=== PATIENT | female | born 1950 | race Caucasian/White ===

== ENCOUNTER 2017-03-17 23:47 | Observation (INO) | payer OTHER ==
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
[2017-03-18] MEDS ORDERED: HYDROmorphONE/DILAUDID 1 MG/ML SYR IVP ONE ×2 (00:13→01:53)
[2017-03-18] MEDS ORDERED: ONDANSETRON 4 MG/2 ML VIAL IVP ONE (00:13)
[2017-03-18] MEDS ORDERED: NS 1,000 ML IV ONE ×2 (00:13→01:53)
[2017-03-18 00:19] LABS: % IMMATURE GRANULYOCYTES 0.1 % (0.0-1.1); ABSOLUTE IMMATURE GRANULOCYTES 0.01 10^3/uL (0.00-0.10); ADD DIFF? NO; ADD MORPH? NO; ADD SCAN? NO; ATYPICAL LYMPHOCYTE FLAG 0 (0-99); FRAGMENT RBC FLAG 0 (0-99); HEMATOCRIT 43.1 % (38.0-47.0); HEMOGLOBIN 14.6 g/dL (12.6-16.3); LEFT SHIFT FLG 0 (0-99); LIPEMIA HEMOLYSIS FLAG 90 (0-99); MEAN CELL HEMOGLOBIN 30.5 pg (27.9-34.1); MEAN CELL HEMOGLOBIN CONCENTR. 33.9 g/dL (32.4-36.7); MEAN PLATELET VOLUME 10.7 fL (8.7-11.7); PLATELET CLUMPS FLAG 20 (0-99); PLATELET COUNT 207 10^3/uL (150-400); RED BLOOD CELL COUNT 4.79 10^6/uL (4.18-5.33); RED CELL DISTRIBUTION WIDTH 14.1 % (11.5-15.2)
[2017-03-18 00:29] LABS: ALANINE AMINOTRANSFERASE 56 IU/L (9-52); ALBUMIN 4.3 g/dL (3.5-5.0); ALKALINE PHOSPHATASE 94 IU/L (38-126); ANION GAP 10 mEq/L (8-16); ASPARTATE AMINOTRANSFERASE 33 IU/L (14-46); BILIRUBIN,TOTAL 0.5 mg/dL (0.1-1.4); BILIRUBIN-CONJUGATED 0.5 mg/dL (0.0-0.5); CALCIUM 9.4 mg/dL (8.5-10.4); CARBON DIOXIDE 21 mEq/l (22-31); CHLORIDE 109 mEq/L (97-110); CREATININE 1.1 mg/dL (0.6-1.0); GLOMERULAR FILTRATION RATE 50; GLUCOSE 102 mg/dL (70-100); POTASSIUM 4.2 mEq/L (3.5-5.2); SODIUM 140 mEq/L (134-144); TOTAL PROTEIN 7.5 g/dL (6.3-8.2)
[2017-03-18] MEDS ORDERED: HYDROmorphONE/DILAUDID 1 MG/ML SYR ONE (01:49)
[2017-03-18] MEDS ORDERED: KETOROLAC 30 MG/1 ML SDV IVP ONE (01:56)
[2017-03-18] MEDS ORDERED: HYDROmorphONE/DILAUDID 1 MG/ML SYR IVP PRN (02:48)
[2017-03-18] MEDS ORDERED: ONDANSETRON 4 MG/2 ML VIAL IVP PRN (02:48)
[2017-03-18] MEDS ORDERED: ACETAMINOPHEN 325 MG TAB PO PRN (02:48)
[2017-03-18] MEDS ORDERED: ONDANSETRON DISINTEGRATING 4 MG TAB PO PRN (02:48)
[2017-03-18] MEDS ORDERED: KETOROLAC 30 MG/1 ML SDV IVP PRN (02:51)
--- NOTE | 2017-03-18 02:53 | PDGENHP ---
History and Physical - Chief Complaint L flank pain - History of Present Illness Patient is a 66 year old female with history of migraines and recurrent nephrolithiasis who presents to the ED with complaint of L flank pain. Patient states she has had recurrent L renal stones for about 1 year, more frequently since 11/2016 when she was diagnosed with a 5mm stone. She states her stones have all mostly passed without intervention and have never been complicated by infection. She states this evening she had sudden onset of a dull, achy L flank pain that started in her back and radiated into her L flank. She felt the quality of her pain was consistent with her previous renal stones, however, the intensity was significantly worse than it's ever been previously. Over the course of the following hours, the pain continued to intensify, so she came to the ED for further management. She reports some mild nausea, but denies any associated fever, chills, dysuria or obvious hematuria. On arrival to the ED, patient was afebrile and hemodynamically stable. Labs showed normal cbc, bmp. CT abd/pelvis revealed a 6.5 mm proximal L ureter stone with mild hydronephrosis. Her symptoms were not able to be adequately controlled in the ED, so she was admitted to the hospitalist service for further management. History Information - Allergies/Home Medication List Allergies/Adverse Reactions: hydrocodone bitartrate [From Vicodin] Allergy (Verified 03/17/17 23:53) Home Medications: Calcium Carbonate/Vitamin D3 [Calcium 600 + Vit D 400 Softgl] 2 each PO DAILY@ 1200 12/27/15 [Last Taken 12/26/15 12:00] Estradiol [Vivelle-Dot 0.05MG (*)] 0.05 mg TD SuWe@0800 12/27/15 [Last Taken ] Herbals/Supplements -Info Only 1 ea PO DAILY 12/27/15 [Last Taken 12/26/15] Levothyroxine [Synthroid 125 mcg (*)] 125 mcg PO DAILY06 12/27/15 [Last Taken 05:00] Progesterone, Micronized [Progesterone] 100 mg PO HS 12/27/15 [Last Taken 22:00] Propranolol HCl [Inderal LA] 160 mg PO DAILY 12/27/15 [Last Taken 12/26/15 09:00 ] Topiramate [Topamax 25MG (*)] 25 mg PO HS 12/27/15 [Last Taken 12/26/15 22:00] Topiramate [Topamax 25MG (*)] 50 mg PO DAILY 12/27/15 [Last Taken 12/26/15 09:00 ] I have personally reviewed and updated: family history, medical history, social history, surgical history - Past Medical History Additional medical history: Migraine headache. recurrentn nephrolithiasis - Surgical History Additional surgical history: appendectomy. 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 Review of Systems ROS: 10pt was reviewed & negative except for what was stated in HPI & below Physical Exam Temp Pulse Resp BP Pulse Ox 36.7 C 57 L 16 101/57 L 95 03/18/17 02:37 03/18/17 02:37 03/18/17 02:37 03/18/17 02:37 03/18/17 02:37 Constitutional: no apparent distress, appears nourished, not in pain, obese Eyes: PERRL, anicteric sclera, EOMI Ears, Nose, Mouth, Throat: moist mucous membranes, hearing normal, ears appear normal, no oral mucosal ulcers Cardiovascular: regular rate and rhythym, no murmur, rub, or gallop, No JVD, No edema Peripheral Pulses: 2+: dorsalis-pedis (R), dorsalis-pedis (L) Respiratory: no respiratory distress, no rales or rhonchi, clear to auscultation Gastrointestinal: normoactive bowel sounds, soft, non-tender abdomen, no palpable masses Genitourinary: no bladder fullness, no bladder tenderness Skin: warm, normal color, no rashes or abrasions, no fluctuance, no induration, No mottled Musculoskeletal: full muscle strength, no muscle tenderness, normal joint ROM, no joint effusions Neurologic: AAOx3, sensation intact bilaterally, CN II-XII Intact, No weakness, No numbness Psychiatric: interacting appropriately, not anxious, not encephalopathic, thought process linear Lab Data & Imaging Review 03/18/17 00:10 03/18/17 00:10 WBC 7.59 10^3/uL (3.80-9.50) 03/18/17 00:10 RBC 4.79 10^6/uL (4.18-5.33) 03/18/17 00:10 Hgb 14.6 g/dL (12.6-16.3) 03/18/17 00:10 Hct 43.1 % (38.0-47.0) 03/18/17 00:10 MCV 90.0 fL (81.5-99.8) 03/18/17 00:10 MCH 30.5 pg (27.9-34.1) 03/18/17 00:10 MCHC 33.9 g/dL (32.4-36.7) 03/18/17 00:10 RDW 14.1 % (11.5-15.2) 03/18/17 00:10 Plt Count 207 10^3/uL (150-400) 03/18/17 00:10 MPV 10.7 fL (8.7-11.7) 03/18/17 00:10 Neut % (Auto) 62.4 % (39.3-74.2) 03/18/17 00:10 Lymph % (Auto) 28.2 % (15.0-45.0) 03/18/17 00:10 [place] % (Auto) 6.7 % (4.5-13.0) 03/18/17 00:10 Eos % (Auto) 2.1 % (0.6-7.6) 03/18/17 00:10 Baso % (Auto) 0.5 % (0.3-1.7) 03/18/17 00:10 Nucleat RBC Rel Count 0.0 % (0.0-0.2) 03/18/17 00:10 Absolute Neuts (auto) 4.73 10^3/uL (1.70-6.50) 03/18/17 00:10 Absolute Lymphs (auto) 2.14 10^3/uL (1.00-3.00) 03/18/17 00:10 Absolute Monos (auto) 0.51 10^3/uL (0.30-0.80) 03/18/17 00:10 Absolute Eos (auto) 0.16 10^3/uL (0.03-0.40) 03/18/17 00:10 Absolute Basos (auto) 0.04 10^3/uL (0.02-0.10) 03/18/17 00:10 Absolute Nucleated RBC 0.00 10^3/uL (0-0.01) 03/18/17 00:10 Immature Gran % 0.1 % (0.0-1.1) 03/18/17 00:10 Immature Gran # 0.01 10^3/uL (0.00-0.10) 03/18/17 00:10 Sodium 140 mEq/L (134-144) 03/18/17 00:10 Potassium 4.2 mEq/L (3.5-5.2) 03/18/17 00:10 Chloride 109 mEq/L (97-110) 03/18/17 00:10 Carbon Dioxide 21 mEq/l (22-31) L 03/18/17 00:10 Anion Gap 10 mEq/L (8-16) 03/18/17 00:10 BUN 31 mg/dL (7-23) H 03/18/17 00:10 Creatinine 1.1 mg/dL (0.6-1.0) H 03/18/17 00:10 Estimated GFR 50 03/18/17 00:10 Glucose 102 mg/dL (70-100) H 03/18/17 00:10 Calcium 9.4 mg/dL (8.5-10.4) 03/18/17 00:10 Total Bilirubin 0.5 mg/dL (0.1-1.4) 03/18/17 00:10 Conjugated Bilirubin 0.5 mg/dL (0.0-0.5) 03/18/17 00:10 Unconjugated Bilirubin 0.0 mg/dL (0.0-1.1) 03/18/17 00:10 AST 33 IU/L (14-46) 03/18/17 00:10 ALT 56 IU/L (9-52) H 03/18/17 00:10 Alkaline Phosphatase 94 IU/L (38-126) 03/18/17 00:10 Total Protein 7.5 g/dL (6.3-8.2) 03/18/17 00:10 Albumin 4.3 g/dL (3.5-5.0) 03/18/17 00:10 Lipase 123.0 IU/L (23-300) 03/18/17 00:10 Visualized and Interpreted imaging results: Yes Interpretation: CT abd/pelvis: 6.5 mm L ureter stone Assessment & Plan Assessment: Patient is a 66 year old female with migraine headaches and history of recurrent nephrolithiasis who presents to the ED with complaint of L flank pain. ED evaluation reveals 6.5 L ureter stone. She is being admitted for symptom management. Plan: # L ureterolithiasis Flank pain likely related to L ureter stone seen on imaging. CT only reveals mild hydronephrosis, patient denies any associated infectious symptoms. UA is pending. Will continue aggressive IV fluid hydration, initiate flomax and strain urine to identify stone. If no improvement in symptoms, will contact urology (patient sees Dr. Kellogg) for further evaluation. - NS @ 125 cc/hr - tamsulosin - follow up UA, if positive, initiate antibiotic therapy - pain control with tylenol/toradol/dilaudid as needed # migraine headaches No complaint of headache tonight. Will continue her maintenance meds. # dispo: admit to observation status # gen: regular diet Full code
[2017-03-18] MEDS: NS 1,000 ML IV SCH ×2 (03:51→10:20)
[2017-03-18 04:44] LABS: COLOR YELLOW; LEUKOCYTE ESTERASE,URINE NEGATIVE (NEGATIVE); NITRITE,URINE NEGATIVE (NEGATIVE)
[2017-03-18 04:49] LABS: BACTERIA 2+ /hpf (NONE SEEN); MUCUS 1+ /lpf (NONE-1+); RBC,URINE 50-182 /hpf (0-3)
[2017-03-18 05:40] LABS: % IMMATURE GRANULYOCYTES 0.4 % (0.0-1.1); ABSOLUTE IMMATURE GRANULOCYTES 0.03 10^3/uL (0.00-0.10); ADD DIFF? NO; ADD MORPH? NO; ADD SCAN? NO; ATYPICAL LYMPHOCYTE FLAG 0 (0-99); FRAGMENT RBC FLAG 0 (0-99); HEMATOCRIT 39.4 % (38.0-47.0); LEFT SHIFT FLG 0 (0-99); LIPEMIA HEMOLYSIS FLAG 80 (0-99); MEAN CELL HEMOGLOBIN 30.6 pg (27.9-34.1); MEAN CELL VOLUME 92.7 fL (81.5-99.8); MEAN PLATELET VOLUME 10.3 fL (8.7-11.7); PLATELET CLUMPS FLAG 0 (0-99); PLATELET COUNT 174 10^3/uL (150-400); RED BLOOD CELL COUNT 4.25 10^6/uL (4.18-5.33)
[2017-03-18 05:49] LABS: INR 1.08 (0.83-1.16); PROTIME(PATIENT) 13.9 SEC (12.0-15.0)
[2017-03-18 05:50] LABS: APTT 34.9 SEC (23.0-38.0)
[2017-03-18 05:51] LABS: ANION GAP 5 mEq/L (8-16); CALCIUM 8.1 mg/dL (8.5-10.4); CARBON DIOXIDE 20 mEq/l (22-31); CHLORIDE 113 mEq/L (97-110); GLOMERULAR FILTRATION RATE 56; GLUCOSE 102 mg/dL (70-100); MAGNESIUM 2.1 mg/dL (1.6-2.3); POTASSIUM 4.5 mEq/L (3.5-5.2); SODIUM 138 mEq/L (134-144)
[2017-03-18 08:29] VITALS: RESP 14
--- NOTE | 2017-03-18 11:37 | HOSPPROG ---
Hospitalist Progress Note Assessment/Plan: 66-year-old woman with a history of recurrent kidney stones is admitted with flank pain. CT scan was done which revealed a 6.5 mm stone in the proximal ureter. This morning she is much improved and is not complaining of any pain. She wants to walk around and if she has ongoing pain control is ready to go home. # nephrolithiasis with a 6.5 mm stone. This morning she is quite comfortable and has not received any narcotic since admission. * Re-evaluate pain in a few hours if she continues to be pain-free she can go home and follow up with Dr. Kellogg and Dr. Mccoy # migraines, resume home meds Subjective: Patient new to me and chart reviewed. Doing better this morning without any pain. Objective: Vital Signs Temp Pulse Resp BP Pulse Ox 36.4 C 51 L 14 104/56 L 96 03/18/17 08:00 03/18/17 08:00 03/18/17 08:00 03/18/17 08:00 03/18/17 08:00 Laboratory Results 03/18/17 05:29 03/17/17 03/18/17 03/19/17 05:59 05:59 05:59 Intake Total 2000 343 Output Total 100 200 Balance 1900 143 PT 13.9 SEC (12.0-15.0) 03/18/17 00:36 INR 1.08 (0.83-1.16) 03/18/17 00:36 - Physical Exam Constitutional: no apparent distress Eyes: No PERRL (Small pupils) Ears, Nose, Mouth, Throat: moist mucous membranes Cardiovascular: regular rate and rhythym, no murmur, rub, or gallop Respiratory: no respiratory distress, no rales or rhonchi, clear to auscultation Gastrointestinal: normoactive bowel sounds, soft, non-tender abdomen, no palpable masses Genitourinary: no bladder fullness Skin: warm, normal color Neurologic: AAOx3 Psychiatric: interacting appropriately, not anxious, not encephalopathic ICD10 Worksheet Patient Problems: Problems Problem Status Onset Flank pain Acute Kidney stone on left side Acute Renal colic on left side Acute
[2017-03-18] MEDS ORDERED: TOPIRAMATE 25 MG TAB PO SCH ×2 (11:45→21:00)
[2017-03-18] MEDS ORDERED: PROPRANOLOL HCL 160 MG PO SCH (11:45)
[2017-03-18 15:30] VITALS: BP 101/54; PULSE 56; TEMP 98.1; O2SAT 91
--- NOTE | 2017-03-18 17:02 | GDS ---
[f rep st] DISCHARGE SUMMARY DISCHARGE DIAGNOSES: 1. Nephrolithiasis. 2. Migraine headaches. PROCEDURES PERFORMED: Abdomen and pelvis CT scan showing a 6.5-mm stone at the proximal left ureter , with [id number] hydronephrosis. HOSPITAL COURSE: The patient was admitted to the hospital for pain control. She did well requiring minimal pain medications in the day, and then stated her pain was very mild, and only noted it when she was walking around. Followup KUB showed the stone still in the same place. I did talk to Dr. Sangita Santos on-call for Urology, who recommended she go home with pain medications, and follow u p with his office in Dr. Kellogg's absence this week. I gave her the phone number to contact him. Ce rtainly, if she has worsening pain that is unbearable at home, she can come back to the emergency de partment. /[id number]/MODL
[2017-03-18] MEDS ORDERED: PROGESTERONE,MICR 100 MG CAP PO SCH (21:00)
[2017-03-19] MEDS ORDERED: LEVOTHYROXINE 125 MCG TAB PO SCH (06:00)
[2017-03-19] MEDS ORDERED: PROPRANOLOL SR 80 MG CAP PO SCH (09:00)
[2017-03-19] MEDS ORDERED: CALCIUM CARB W/VIT D 500 MG TAB PO SCH (09:00)
[2017-03-20] MEDS ORDERED: ESTRADIOL VIVELLE 0.05 MG PATCH TD SCH (21:00)
== END 2017-03-18 16:42 | disposition home or self-care (01) ==
LOC: F3E 03-18 03:00
PROVIDERS: ADMIT Internal Medicine; ATTEND Internal Medicine
DX: N20.0 Calculus of kidney (principal); G43.909 Migraine, unspecified, not intractable, without status migrainosus
CPT/HCPCS: 74000; 74176; G0378; J1170; J1885; J2405

== ENCOUNTER → 2017-07-16 | Outpatient (CLI) | payer OTHER | LOC: FIMAGING 10:09 | PROVIDERS: ATTEND Obstetrics & Gynecology | DX: Z12.31 Encounter for screening mammogram for malignant neoplasm of breast (principal); Z80.3 Family history of malignant neoplasm of breast; R92.8 Other abnormal and inconclusive findings on diagnostic imaging of breast | CPT/HCPCS: G0202 ==

== ENCOUNTER → 2017-07-24 | Outpatient (CLI) | payer OTHER | LOC: FIMAGING 09:33 | PROVIDERS: ATTEND Obstetrics & Gynecology | DX: Z12.39 Encounter for other screening for malignant neoplasm of breast (principal); N63 Unspecified lump in breast ==

== ENCOUNTER 2017-12-04 08:43 | Emergency (ER) | payer OTHER ==
[2017-12-04 08:53] VITALS: TEMP 98.1
[2017-12-04] MEDS ORDERED: NS 1,000 ML IV ONE (09:00)
[2017-12-04] MEDS ORDERED: KETOROLAC 30 MG/1 ML SDV IVP ONE (09:00)
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
[2017-12-04 09:13] LABS: PLATELET COUNT 219 10^3/uL (150-400)
[2017-12-04] MEDS ORDERED: TAMSULOSIN HCL 0.4 MG CAP PO ONE (09:48)
[2017-12-04 10:35] VITALS: BP 124/71; PULSE 58; RESP 16; O2SAT 95
== END 2017-12-04 10:53 | disposition home or self-care (01) ==
PROC: 3E0337Z Introduction of Electrolytic and Water Balance Substance into Peripheral Vein, Percutaneous Approach (ICD-10-PCS; principal; 2017-12-04)
DX: N20.1 Calculus of ureter (principal); E86.9 Volume depletion, unspecified
CPT/HCPCS: 74176; 96361; 96374; 99285; J1885

== ENCOUNTER → 2018-04-03 | Outpatient (CLI) | payer OTHER | LOC: FIMAGING 10:03 | PROVIDERS: ATTEND Obstetrics & Gynecology | DX: Z09 Encounter for follow-up examination after completed treatment for conditions other than malignant neoplasm (principal); R92.8 Other abnormal and inconclusive findings on diagnostic imaging of breast ==

== ENCOUNTER → 2018-05-30 | Outpatient (CLI) | payer OTHER | LOC: FIMAGING 12:20 | PROVIDERS: ATTEND Family Medicine Sports Medicine | DX: Z13.820 Encounter for screening for osteoporosis (principal); M85.89 Other specified disorders of bone density and structure, multiple sites; Z78.0 Asymptomatic menopausal state ==

== ENCOUNTER → 2018-09-11 | Outpatient (CLI) | payer OTHER | LOC: FIMAGING 09:31 | PROVIDERS: ATTEND Obstetrics & Gynecology Gynecology | DX: Z12.31 Encounter for screening mammogram for malignant neoplasm of breast (principal) ==